=== PATIENT | male | born 1975 | race Caucasian/White ===

== ENCOUNTER 2024-06-14 17:18 | Observation (INO) | payer OTHER, SELFPAY ==
[~2024-06-14 17:18] MED LIST: Iopamidol 300 61% 100 ML VIAL FS ONE; Iopamidol 370 76% 100 ML VIAL ONE
[2024-06-14 18:23] LABS: #Basophils 0.04 10x3/uL (0.0-0.2); #Eosinophils 0.12 10x3/uL (0.0-0.5); #Monocytes 0.46 10x3/uL (0.0-1.1); #Neutrophils 3.63 10x3/uL (1.5-8.4); %Basophils 0.7 % (0.0-2.0); %Lymphocytes 28.5 % (18.0-47.0); %Monocytes 7.7 % (0.0-10.0); %Neutrophils 60.9 % (40.0-75.0); Hemoglobin 13.4 g/dL (13.5-17.5); Mean Corpuscular HGB CONC 36.2 g/dL (32.0-36.0); Mean Corpuscular Hemoglobin 29.5 pg (27.0-33.0); Mean Corpuscular Volume 81.5 fL (81.2-95.1); Mean Platelet Volume 8.9 fL (7.4-10.4); Platelet Count 224 10x3/uL (150-450); Red Blood Cell (RBC) Count 4.54 10x6/uL (4.32-5.72); White Blood Cell (WBC) Count 5.96 10x3/uL (3.5-10.5)
[2024-06-14 18:33] LABS: ALT (SGPT) 10 U/L (Less than 45); AST (SGOT) 10 U/L (11-34); Albumin 3.7 g/dL (3.1-4.5); Alkaline Phosphatase 71 U/L (40-110); Anion Gap 13 mmol/L (10-20); BUN (Urea Nitrogen) 19 mg/dL (8.4-25.7); Bilirubin, Total 0.3 mg/dL (0.3-1.2); Calc. Creatinine Clearance 0 mL/min (70-130); Calcium 8.7 mg/dL (7.8-10.44); Carbon Dioxide 22 mmol/L (22-29); Chloride 100 mmol/L (98-107); Estimated GFR 79; Potassium 4.3 mmol/L (3.5-5.1); Protein, Total 6.7 g/dL (6.0-8.3); Sodium 131 mmol/L (136-145)
[2024-06-14 18:38] LABS: Glucose 507 mg/dL (70-105)
[2024-06-14 18:39] LABS: Troponin I Less than 0.010 ng/mL (< 0.028)
[2024-06-14 19:00] LABS: Bilirubin Neg (Negative); Blood, Urine Negative (Negative); Clarity Clear (Clear); Glucose, Urine (Dipstick) >=1000 mg/dL (Negative); Ketone, Urine Negative (Negative); Leukocyte Negative (Negative); Nitrite Negative (Negative); Protein, Urine (Dipstick) Negative (Neg-Trace); Urobilinogen Normal mg/dL (Less than 2)
[2024-06-14 19:15] LABS: Actual Bicarbonate (HCO3v) 21.9 mEq/L (22-28); Analyzer IN Cardio CS ER; Base Excess -3.4 mEq/L (-2 - +2); Chloride (VBG) 100 mmol/L (98-106); Hematocrit-VBG 42 % (42.0-52.0); Hemoglobin (Hb) 14.2 g/dL (13.1-17.2); Potassium (VBG) 4.13 mmol/L (3.70-5.30); Puncture Site Other Site; RapidComm Collect By RN; Sodium 134 mmol/L (133-146); pH (venous) 7.353 (7.32-7.43)
[2024-06-14 19:21] LABS: Bacteria/HPF 1+ HPF (None Seen); CAUTI Indications for Culture Dysuria,urgency,freq; RBC/HPF 0-3 HPF (0-3); Squamous Epithelial 0-3 HPF (0-3); Urine Culture Reflex No No; WBC/HPF 0-3 HPF (0-3)
[2024-06-14] MEDS ORDERED: Insulin Regular, Human 100 UNIT/ML 10 ML VIAL ONE (20:24)
[2024-06-14] MEDS ORDERED: Acetaminophen 325 MG TAB ONE (20:36)
[2024-06-14] MEDS ORDERED: Aspirin Chewable 81 MG TAB ONE (21:11)
[2024-06-14] MEDS ORDERED: Dextrose 50% Abboject 50 ML SYRINGE SLOW IVP PRN (22:05)
[2024-06-14] MEDS ORDERED: Dextrose 5% in Water 1,000 ML IV PRN (22:05)
[2024-06-14] MEDS ORDERED: Glucagon 1 MG/ML KIT IM PRN (22:05)
[2024-06-14] MEDS ORDERED: Acetaminophen 325 MG TAB PO PRN (22:10)
[2024-06-14 22:46] LABS: Magnesium 1.9 mg/dL (1.6-2.6)
[2024-06-14 22:49] LABS: Troponin I Less than 0.010 ng/mL (< 0.028)
[2024-06-14] MEDS ORDERED: Ketorolac Tromethamine 30 MG (1 mL) VIAL ONE (23:31)
[2024-06-15] MEDS ORDERED: Clopidogrel Bisulfate 300 MG TAB ONE (00:03)
[2024-06-15 00:04] VITALS: BMI 28.8
[2024-06-15] MEDS ORDERED: Atorvastatin Calcium 40 MG TAB ONE (00:04)
[2024-06-15] MEDS: Lantus 1000 UNITS/10 ML VIAL SC SCH ×2 (00:19→09:19)
[2024-06-15] MEDS: Clopidogrel Bisulfate 300 MG TAB PO SCH (00:20)
[2024-06-15] MEDS: Nicotine 21 MG PATCH TD SCH (00:20)
[2024-06-15] MEDS: Sodium Chloride 0.9% 1,000 ML IV SCH (00:20)
[2024-06-15] MEDS: Atorvastatin Calcium 40 MG TAB PO SCH (00:20)
[2024-06-15] MEDS: Insulin Lispro 100 UNIT/ML 10 ML VIAL SC PRN ×2 (02:40→05:04)
[2024-06-15] MEDS ORDERED: HYDROcodone/Acetaminophen 7.5/325 mg Tablet PO PRN (02:52)
[2024-06-15] MEDS ORDERED: HYDROcodone/Acetaminophen 10/325 mg Tablet ONE ×2 (03:02→08:42)
[2024-06-15] MEDS: HYDROcodone/Acetaminophen 10/325 mg Tablet PO PRN (03:13)
[2024-06-15 03:42] LABS: #Basophils 0.04 10x3/uL (0.0-0.2); #Eosinophils 0.16 10x3/uL (0.0-0.5); #Monocytes 0.39 10x3/uL (0.0-1.1); #Neutrophils 2.64 10x3/uL (1.5-8.4); %Basophils 0.8 % (0.0-2.0); %Lymphocytes 38.8 % (18.0-47.0); %Monocytes 7.4 % (0.0-10.0); %Neutrophils 49.8 % (40.0-75.0); Hematocrit 36.3 % (38.8-50.0); Mean Corpuscular HGB CONC 35.8 g/dL (32.0-36.0); Mean Corpuscular Hemoglobin 29.6 pg (27.0-33.0); Mean Corpuscular Volume 82.7 fL (81.2-95.1); Mean Platelet Volume 8.9 fL (7.4-10.4); Platelet Count 220 10x3/uL (150-450); RBC Distribution Width 12.9 % (11.5-14.5); Red Blood Cell (RBC) Count 4.39 10x6/uL (4.32-5.72); White Blood Cell (WBC) Count 5.29 10x3/uL (3.5-10.5)
[2024-06-15 03:55] LABS: Anion Gap 13 mmol/L (10-20); BUN (Urea Nitrogen) 19 mg/dL (8.4-25.7); Calc. Creatinine Clearance 122 mL/min (70-130); Calcium 9.6 mg/dL (7.8-10.44); Carbon Dioxide 25 mmol/L (22-29); Cardiac Risk 8.5 (Less than 4.5); Chloride 104 mmol/L (98-107); Cholesterol 196 mg/dl (< 200 Desired); Estimated GFR 80; Glucose 305 mg/dL (70-105); HDL Cholesterol 23 mg/dL (>60 Neg Risk); Potassium 3.9 mmol/L (3.5-5.1); Sodium 138 mmol/L (136-145); Triglycerides 913 mg/dL (Less than 150)
[2024-06-15] MEDS ORDERED: Aspirin 81 mg Enteric Coated Tablet ONE (07:21)
[2024-06-15] MEDS ORDERED: Enoxaparin 40 MG (0.4 mL) SYRINGE ONE (07:21)
[2024-06-15] MEDS ORDERED: Acetaminophen 325 MG TAB ONE (07:22)
[2024-06-15] MEDS ORDERED: Clopidogrel Bisulfate 75 MG TAB ONE (07:22)
[2024-06-15] MEDS ORDERED: Clopidogrel Bisulfate 75 MG TAB PO SCH (09:00)
[2024-06-15] MEDS: Clopidogrel Bisulfate 75 MG TAB PO SCH (09:18)
[2024-06-15] MEDS: Aspirin 81 mg Enteric Coated Tablet PO SCH (09:18)
[2024-06-15] MEDS: Enoxaparin 40 MG (0.4 mL) SYRINGE SC SCH (09:18)
[2024-06-15 12:13] LABS: Hemoglobin A1c 10.5 % (4.0-6.0)
[2024-06-15 12:25] VITALS: TEMP 97.8
[2024-06-15] MEDS ORDERED: hydrALAZINE 20 MG/ML VIAL SLOW IVP PRN (12:29)
[2024-06-15] MEDS ORDERED: Ondansetron PF 4 MG/2 ML Vial ONE (12:36)
[2024-06-15] MEDS: Ondansetron PF 4 MG/2 ML Vial IVP PRN (12:45)
[2024-06-15 16:03] VITALS: BP 154/95
[2024-06-15] MEDS ORDERED: Atorvastatin Calcium 40 MG TAB PO SCH ×2 (21:00)
== END 2024-06-15 16:45 | disposition home or self-care (01) ==
LOC: CSHERS 17:18 → CSHERHOLD 21:55
PROVIDERS: ADMIT Family Medicine; ATTEND Internal Medicine
PROC: B24BZZZ Ultrasonography of Heart with Aorta (ICD-10-PCS; principal; 2024-06-15)
DX: R29.818 Other symptoms and signs involving the nervous system (principal); R20.0 Anesthesia of skin; R07.89 Other chest pain; E11.65 Type 2 diabetes mellitus with hyperglycemia; E11.42 Type 2 diabetes mellitus with diabetic polyneuropathy; F17.210 Nicotine dependence, cigarettes, uncomplicated; Z86.73 Personal history of transient ischemic attack (TIA), and cerebral infarction without residual deficits; Z98.890 Other specified postprocedural states; Z79.4 Long term (current) use of insulin; Z79.82 Long term (current) use of aspirin; Z79.02 Long term (current) use of antithrombotics/antiplatelets; Z79.899 Other long term (current) drug therapy
CPT/HCPCS: 36415; 36416; 70496; 70498; 70551; 71045; 74177; 80048; 80053; 80061; 81001; 82010; 82805; 83036; 83735; 84484; 85025; 93005; 93010; 93306; J1650; J1815; J1885; J2405; J7030; Q9967